=== PATIENT | female | born 1935 | race Caucasian/White ===

== ENCOUNTER 2023-07-20 06:52 | Day surgery (SDC) | payer OTHER, BC ==
[2023-07-15 17:09] VITALS: BMI 27.3
[2023-07-20] MEDS ORDERED: CIPROFLOXACIN HCL 0.3% OPHTH 2.5ML BOTTLE ONE (07:07)
[2023-07-20] MEDS ORDERED: TETRACAINE 0.5% OPHTH SOLN 2 ML BOTTLE ONE (07:19)
[2023-07-20] MEDS ORDERED: BSS (NA/CA/MG/K) BALANCED SALT SOLUTION OPHTH SOLN 15 ML BOTTLE ONE (07:19)
[2023-07-20] MEDS ORDERED: EPINEPHrine/PF 1 MG/1 ML (1:1,000) AMPULE ONE (07:19)
[2023-07-20] MEDS ORDERED: LIDOCAINE 1% P/F 10 MG/ML VIAL ONE (07:19)
[2023-07-20] MEDS ORDERED: NEO/POLYMYX B SULF/DEXAMETH OPHTHALMIC 5ML BOTTLE ONE (07:20)
[2023-07-20] MEDS ORDERED: CARBACHOL 0.01% INTRA-OCULAR 1.5 ML VIAL ONE (07:20)
[2023-07-20 07:32] VITALS: RESP 16
[2023-07-20] MEDS: TROPICAMIDE 1% OPHTH SOLN 15 ML BOTTLE ONE ×3 (08:10→08:20)
[2023-07-20] MEDS: CYCLOPENTOLATE 2% OPHTH SOLN 2 ML BOTTLE ONE ×3 (08:10→08:20)
[2023-07-20] MEDS: PHENYLEPHRINE 2.5% OPTHALMIC DROP 2ML BOTTLE ONE ×3 (08:10→08:20)
[2023-07-20] MEDS: TOBRAMYCIN 0.3% OPHTH SOLN 5 ML BOTTLE ONE ×3 (08:10→08:20)
[2023-07-20] MEDS ORDERED: MIDAZOLAM HCL 2 MG/2 ML SINGLE DOSE VIAL ONE (08:38)
[2023-07-20 09:10] VITALS: TEMP 97.4
[2023-07-20 09:31] VITALS: BP 139/74; PULSE 71
== END 2023-07-20 09:35 | disposition home or self-care (01) ==
LOC: FASU 06:52
PROVIDERS: ATTEND Ophthalmology
PROC: 08RJ3JZ Replacement of Right Lens with Synthetic Substitute, Percutaneous Approach (ICD-10-PCS; principal; 2023-07-20 08:42)
DX: H26.8 Other specified cataract (principal)
CPT/HCPCS: 66984; V2632

== ENCOUNTER 2023-08-10 06:22 | Day surgery (SDC) | payer OTHER, BC ==
[2023-08-02 07:24] VITALS: BMI 27.3
[2023-08-10] MEDS ORDERED: CIPROFLOXACIN HCL 0.3% OPHTH 2.5ML BOTTLE ONE (06:37)
[2023-08-10 06:53] VITALS: RESP 18
[2023-08-10] MEDS: TROPICAMIDE 1% OPHTH SOLN 15 ML BOTTLE ONE ×3 (07:05→07:15)
[2023-08-10] MEDS: PHENYLEPHRINE 2.5% OPTHALMIC DROP 2ML BOTTLE ONE ×3 (07:05→07:15)
[2023-08-10] MEDS: CYCLOPENTOLATE 2% OPHTH SOLN 2 ML BOTTLE ONE ×3 (07:05→07:15)
[2023-08-10] MEDS: TOBRAMYCIN 0.3% OPHTH SOLN 5 ML BOTTLE ONE ×3 (07:10→07:20)
[2023-08-10] MEDS ORDERED: LIDOCAINE 1% P/F 10 MG/ML VIAL ONE (07:19)
[2023-08-10] MEDS ORDERED: PHENYLEPHRINE/KETOROLAC 4 ML VIAL IO ONE (07:19)
[2023-08-10] MEDS ORDERED: EPINEPHrine/PF 1 MG/1 ML (1:1,000) AMPULE ONE (07:19)
[2023-08-10] MEDS ORDERED: BSS (NA/CA/MG/K) BALANCED SALT SOLUTION OPHTH SOLN 15 ML BOTTLE ONE (07:20)
[2023-08-10] MEDS ORDERED: TRYPAN BLUE 0.5 ML DISP.SYRIN ONE (07:20)
[2023-08-10] MEDS ORDERED: CARBACHOL 0.01% INTRA-OCULAR 1.5 ML VIAL ONE (07:20)
[2023-08-10] MEDS ORDERED: LIDOCAINE HCL/PF 1% SDV 5ML VIAL ONE (07:20)
[2023-08-10] MEDS ORDERED: TETRACAINE 0.5% OPHTH SOLN 2 ML BOTTLE ONE (07:20)
[2023-08-10] MEDS ORDERED: NEO/POLYMYX B SULF/DEXAMETH OPHTHALMIC 5ML BOTTLE ONE (07:20)
[2023-08-10] MEDS ORDERED: ACETYLCHOLINE 1:100 INTRA-OCUL 20 MG/2 ML KIT ONE (07:21)
[2023-08-10] MEDS ORDERED: MIDAZOLAM HCL 2 MG/2 ML SINGLE DOSE VIAL ONE ×2 (08:07→08:11)
[2023-08-10 08:34] VITALS: TEMP 97.6
[2023-08-10 08:56] VITALS: BP 131/74; PULSE 79
== END 2023-08-10 09:11 | disposition home or self-care (01) ==
LOC: FASU 06:22
PROVIDERS: ATTEND Ophthalmology
PROC: 08RK3JZ Replacement of Left Lens with Synthetic Substitute, Percutaneous Approach (ICD-10-PCS; principal; 2023-08-10 08:11)
DX: H26.8 Other specified cataract (principal)
CPT/HCPCS: 66984; V2632; J1097